=== PATIENT | female | born 1980 | race Caucasian/White ===

== ENCOUNTER 2017-03-25 06:21 | Day surgery (SDC) | payer OTHER ==
[2017-03-25] MEDS ORDERED: LIDOCAINE 1% PF 2 ML VIAL. ID (07:00)
[2017-03-25] MEDS ORDERED: fentaNYL PF VIAL 100 MCG/2 ML VIAL IV (07:00)
[2017-03-25] MEDS ORDERED: HYDROmorphone 2 MG/ML VIAL IV (07:00)
[2017-03-25] MEDS ORDERED: ONDANSETRON PF 4 MG/2 ML VIAL. IV (07:00)
[2017-03-25] MEDS: IV RINGERS,LACTATED 1000ML 1,000 ML IV (07:00)
[2017-03-25 07:19] LABS: ADD MAN DIFF? NO
[2017-03-25 07:25] LABS: BASO % 1 % (0-3); EOS # 0.2 x10^3/uL (0.0-0.7); EOS % 2 % (0-3); HEMATOCRIT 38.4 % (36.0-47.0); LYMPH # 2.7 x10^3/uL (1.0-4.8); LYMPH % 40 % (24-48); MEAN CORPUSCULAR HEMOGLOBIN 32 pg (25-35); MEAN CORPUSCULAR HGB CONC 34 g/dL (31-37); MEAN CORPUSCULAR VOLUME 93 fL (79-100); MONO # 0.5 x10^3/uL (0.0-1.1); MONO % 8 % (0-9); NEUT # 3.4 x10^3uL (1.8-7.7); NEUT % 50 % (31-73); PLATELET COUNT 252 x10^3/uL (140-400); RED BLOOD COUNT 4.13 x10^6/uL (3.50-5.40); RED CELL DISTRIBUTION WIDTH 13.3 % (11.5-14.5); WHITE BLOOD COUNT 6.8 x10^3/uL (4.0-11.0)
[2017-03-25 07:28] LABS: ANION GAP 11 (6-14); BLOOD UREA NITROGEN 10 mg/dL (7-20); CALCIUM 8.6 mg/dL (8.5-10.1); CARBON DIOXIDE 25 mmol/L (21-32); CHLORIDE 102 mmol/L (98-107); CREATININE 0.8 mg/dL (0.6-1.0); GFR 80.7; GLUCOSE 115 mg/dL (70-99); SODIUM 138 mmol/L (136-145)
[2017-03-25] MEDS ORDERED: SURGICEL HEMOSTAT 4X8 EACH. (07:32)
[2017-03-25 07:34] LABS: ALBUMIN 3.9 g/dL (3.4-5.0); TOTAL BILIRUBIN 0.5 mg/dL (0.2-1.0)
[2017-03-25] MEDS ORDERED: ONDANSETRON PF 4 MG/2 ML VIAL. (07:34)
[2017-03-25] MEDS ORDERED: LIDOCAINE 1% PF 5 ML VIAL. (07:34)
[2017-03-25] MEDS ORDERED: PROPOFOL 20 ML IV (07:34)
[2017-03-25] MEDS ORDERED: fentaNYL PF VIAL 100 MCG/2 ML VIAL (07:35)
[2017-03-25] MEDS ORDERED: NEOSTIGMINE METHYLSULFATE 5 MG/5 ML SYRINGE. (07:35)
[2017-03-25] MEDS ORDERED: ROCURONIUM 50 MG/5 ML VIAL. ×2 (07:35→08:43)
[2017-03-25] MEDS ORDERED: DEXAMETHASONE SOD PHOS 20 MG/5 ML VIAL. (07:36)
[2017-03-25] MEDS ORDERED: GLYCOPYRROLATE 1 MG/5 ML VIAL. (07:36)
[2017-03-25] MEDS ORDERED: MIDAZOLAM HCL/PF 2 MG/2 ML VIAL. (07:38)
[2017-03-25] MEDS ORDERED: FAMOTIDINE 20 MG/2 ML VIAL (07:39)
[2017-03-25 08:11] LABS: NEG OBC UR NEG; POS OBC UR POS; U PREG PATIENT NEGATIVE (NEG)
[2017-03-25] MEDS ORDERED: SEVOFLURANE 31 TO 60 MINUTES. IH (08:17)
[2017-03-25] MEDS ORDERED: SEVOFLURANE 61 TO 120 MINUTES. IH (08:17)
[2017-03-25] MEDS: IOHEXOL 300 MG/ML 100ML VIAL. (08:26)
[2017-03-25] MEDS: BUPIVACAINE-EPI 0.25%-1:200000 50 ML VIAL. (08:26)
[2017-03-25] MEDS: fentaNYL PF VIAL 100 MCG/2 ML VIAL IV ×2 (09:34→09:39)
[2017-03-25] MEDS: PROCHLORPERAZINE 10 MG/2 ML VIAL. IV (09:45)
[2017-03-25] MEDS: MORPHINE SULFATE 2 MG/ML DISP.SYRIN. IV ×2 (09:53→10:19)
[2017-03-25] MEDS: oxyCODONE/APAP 7.5/325 1 TAB TABLET PO (10:31)
[2017-03-25] MEDS ORDERED: ceFAZolin 2GM PREMIX 2 GM/50 ML BAG IV (12:00)
== END 2017-03-25 12:50 | disposition home or self-care (01) ==
LOC: SURG 06:21
DX: K80.10 Calculus of gallbladder with chronic cholecystitis without obstruction (principal); E66.9 Obesity, unspecified; Z68.42 Body mass index [BMI] 45.0-49.9, adult; Z88.2 Allergy status to sulfonamides; F17.210 Nicotine dependence, cigarettes, uncomplicated; F10.99 Alcohol use, unspecified with unspecified alcohol-induced disorder
CPT/HCPCS: 36415; 74300; 80048; 81025; 82040; 82247; 85025; 88304; C1769; J0690; J0780; J1100; J2250; J2270; J2405; J2704; J2710; J3010; J3490; J7030; Q9967; S0028